=== PATIENT | female | born 1955 | race Caucasian/White ===

== ENCOUNTER 2018-05-29 10:01 | Outpatient (CLI) | payer BC ==
--- NOTE | 2018-05-29 12:49 | MMO ---
BILATERAL DIGITAL SCREENING MAMMOGRAMS: HISTORY: A 63-year-old who presents for digital screening mammography. COMPARISON: 06/28/2016, 03/25/2014, 02/02/2010. This patient's mammogram is interpreted with the assistance of computer-aided detection. FINDINGS: The breasts are heterogeneously dense which may obscure small masses. Stable global asymmetry in the inner lower right breast. There are a few stable typically benign calcifications in both breasts. No direct or indirect evidence of malignancy. IMPRESSION: BI-RADS category 2, benign findings. Continued routine screening. BIRADS 2: Benign Finding(s) Routine annual screening mammography (for women over age 40) POS: [facility]
== END 2018-05-29 10:02 | disposition home or self-care (01) ==
LOC: SCSMAMMO 10:01
PROVIDERS: ATTEND Family Medicine
DX: Z12.31 Encounter for screening mammogram for malignant neoplasm of breast (principal)
CPT/HCPCS: 77067